=== PATIENT | male | born 1995 | race Two or more races ===

== ENCOUNTER 2018-10-21 14:14 | Emergency (ER) | payer OTHER ==
[~2018-10-21] VITALS: Ht 172.7 cm; Wt 92.0 kg
[2018-10-21] MEDS ORDERED: METHYLPREDNISOLONE SOD SUCC 125 MG/2 ML VIAL IV ONE (16:15)
[2018-10-21] MEDS ORDERED: DIPHENHYDRAMINE 50MG CAPSULE PO ONE (16:15)
[2018-10-21 16:28] LABS: BASOPHILS % 0.3 % (0.0-2.0); EOSINOPHILS % 0.4 % (0.0-5.0); HEMOGLOBIN. 15.2 g/dL (14.0-18.0); LYMPHOCYTES % 16.5 % (20.0-50.0); MEAN CORPUSCULAR HEMOGLOBIN 29.2 pg (28.0-32.0); MEAN CORPUSCULAR VOLUME 86.7 fL (80.0-94.0); MEAN PLATELET VOLUME 9.3 fl (7.4-10.4); MONOCYTES % 7.3 % (2.0-8.0); NEUTROPHILS % 75.5 % (40.0-76.0); PLATELET 257 x1000/uL (130-400); RED CELL DISTRIBUTION WIDTH 14.2 % (11.6-14.6)
[2018-10-21 16:29] LABS: CHLORIDE 105 mEq/L (98-107)
[2018-10-21] MEDS ORDERED: POTASSIUM CHLORIDE 20MEQ TABLET SR PO ONE (18:30)
[2018-10-21 19:10] VITALS: BP 132/80
== END 2018-10-21 19:28 | disposition home or self-care (01) ==
LOC: ER 14:14
DX: L29.9 Pruritus, unspecified (principal); R09.81 Nasal congestion; J34.89 Other specified disorders of nose and nasal sinuses; R00.0 Tachycardia, unspecified; R06.82 Tachypnea, not elsewhere classified; T39.315A Adverse effect of propionic acid derivatives, initial encounter; E87.6 Hypokalemia; J45.909 Unspecified asthma, uncomplicated; Y92.89 Other specified places as the place of occurrence of the external cause
CPT/HCPCS: 36415; 80053; 85025; 96374; 99283; J2930; Q0163